=== PATIENT | male | born 1980 | race Caucasian/White ===

== ENCOUNTER 2016-04-25 20:44 | Emergency (ER) | payer BC ==
[~2016-04-25] VITALS: Ht 180.3 cm; Wt 83.9 kg
[~2016-04-25 20:44] MED LIST: [UNRECOGNIZED DRUG - OTHER] PO
[2016-04-25 21:04] VITALS: BP 160/86; PULSE 68; RESP 14; TEMP 98.9; O2SAT 98
--- NOTE | 2016-04-25 21:10 | NUR ---
Patient to ER bed 5 to gown for evaluation. Side rails up. Report given to GABRIEL LITTLEJOHN.
--- NOTE | 2016-04-25 21:11 | NUR ---
at bedside examining pt
[2016-04-25] MEDS ORDERED: KETOROLAC TROMETHAMINE 60 MG/2 ML VIAL IM ONE (21:15)
--- NOTE | 2016-04-25 21:15 | NUR ---
Pt presents to ED with c/o R side of neck soreness , 10/22, started after he woke up today, with occational spasm at R torso. A&Ox4, denies SOB or chestpain, denies N/V/D, pt denies any injury. Will continue to monitor
[2016-04-25 22:27] VITALS: BP 160/86; PULSE 68; RESP 14; TEMP 98.9; O2SAT 98
--- NOTE | 2016-04-25 22:27 | NUR ---
Patient given written and verbal discharge instructions and verbalizes understanding. ER MD Dr. Brian discussed with patient the results and treatment provided. Patient in stable condition. ID arm band removed. Rx of [place] 5 and Motrin 800 given. Patient educated on pain management and to follow up with PMD. Pain Scale 3/10. Opportunity for questions provided and answered.
== END 2016-04-25 22:27 | disposition home or self-care (01) ==
LOC: SED 20:44
DX: S13.4XXA Sprain of ligaments of cervical spine, initial encounter (principal); F17.200 Nicotine dependence, unspecified, uncomplicated; X58.XXXA Exposure to other specified factors, initial encounter; Y93.89 Activity, other specified; Y92.89 Other specified places as the place of occurrence of the external cause; Y99.8 Other external cause status
CPT/HCPCS: 96372; 99283; J1885

== ENCOUNTER 2016-08-09 16:50 | Emergency (ER) | payer SELFPAY ==
[~2016-08-09] VITALS: Ht 180.3 cm; Wt 81.6 kg
[2016-08-09 16:56] VITALS: BP 156/87; PULSE 79; RESP 20; TEMP 97.9; O2SAT 99
--- NOTE | 2016-08-09 17:01 | NUR ---
Pt placed to ER waiting room in stable condition. ANNIE Wheatley notified.
--- NOTE | 2016-08-09 17:10 | NUR ---
Pt brought by self, A&Ox4, pt c/o swelling to base of throat with right ear irritation, denies pain at this time, pt able to swallow, skin pink and warm, cap refill <3, respirations even and unlabored.
--- NOTE | 2016-08-09 17:15 | NUR ---
Corry Cruz FILER FINISH at bedside examining patient
[2016-08-09] MEDS ORDERED: KETOROLAC TROMETHAMINE 60 MG/2 ML VIAL IM ONE (18:45)
[2016-08-09] MEDS ORDERED: IBUPROFEN 800 MG TABLET PO ONE (19:00)
[2016-08-09 20:47] LABS: BASOPHILS % (AUTO) 0.3 % (0.0-2.0); EOSINOPHILS # (AUTO) 0.1 K/uL (0.0-0.4); EOSINOPHILS % (AUTO) 0.8 % (0.0-4.0); HEMATOCRIT 47.7 % (36-54); LYMPHOCYTES # (AUTO) 1.4 K/uL (1.0-5.5); LYMPHOCYTES % (AUTO) 11.5 % (20.5-51.5); MEAN CORPUSCULAR HEMOGLOBIN 30 pg (27-31); MEAN CORPUSCULAR HGB CONC 33 % (32-36); MEAN CORPUSCULAR VOLUME 88 fL (79.0-98.0); MONOCYTES # (AUTO) 1.1 K/uL (0.0-1.0); NEUTROPHILS # (AUTO) 9.4 K/uL (1.8-7.7); NEUTROPHILS % (AUTO) 78.4 % (40.0-70.0); PLATELET COUNT (AUTO) 258 K/uL (130-430); RED BLOOD CELL COUNT(AUTO) 5.41 MIL/uL (4.2-6.2); RED CELL DISTRIBUTION WIDTH 12.1 % (9.0-15.0); WHITE BLOOD COUNT (AUTO) 11.9 K/uL (4.8-10.8)
[2016-08-09 20:58] LABS: CALCIUM 9.2 mg/dL (8.4-11.0); CREATININE 0.96 mg/dL (0.55-1.30)
[2016-08-09 21:13] LABS: ALBUMIN 4.1 g/dL (3.4-4.8); THYROID STIMULATING HORMONE 0.61 uIu/mL (0.34-4.82); TOTAL BILIRUBIN 0.8 mg/dL (0.0-1.0); TOTAL PROTEIN, SERUM 8.2 g/dL (6.4-8.3)
[2016-08-09 21:30] VITALS: BP 156/87; PULSE 79; RESP 20; TEMP 97.9; O2SAT 99
--- NOTE | 2016-08-09 21:30 | NUR ---
Patient given written and verbal discharge instructions and verbalizes understanding. ER MD discussed with patient the results and treatment provided. Patient in stable condition. ID arm band removed. Patient educated on pain management and to follow up with PMD. Pain Scale 0/10. Opportunity for questions provided and answered.
== END 2016-08-09 21:30 | disposition home or self-care (01) ==
LOC: SED 16:50
DX: R22.1 Localized swelling, mass and lump, neck (principal); D72.829 Elevated white blood cell count, unspecified; E07.9 Disorder of thyroid, unspecified; K21.9 Gastro-esophageal reflux disease without esophagitis; F15.10 Other stimulant abuse, uncomplicated; F14.10 Cocaine abuse, uncomplicated
CPT/HCPCS: 36415; 76536-TC; 80053; 84443-TC; 85025; 99285

== ENCOUNTER 2020-04-07 03:46 | Emergency (ER) | payer SELFPAY ==
[~2020-04-07] VITALS: Ht 180.3 cm; Wt 81.6 kg
[2020-04-07 03:57] VITALS: BP_SYST 145
[2020-04-07] MEDS ORDERED: MECLIZINE HCL 25 MG TABLET (ANITVERT) PO ONE (04:30)
[2020-04-07] MEDS ORDERED: MECLIZINE HCL 25 MG TABLET (ANITVERT) ONE (05:01)
[2020-04-07 05:14] LABS: BASOPHILS # (AUTO) 0.1 K/uL (0.0-0.2); EOSINOPHILS # (AUTO) 0.1 K/uL (0.0-0.4); EOSINOPHILS % (AUTO) 1.2 % (0.0-4.0); HEMATOCRIT 48.2 % (36-54); HEMOGLOBIN 16.8 g/dL (14.0-18.0); LYMPHOCYTES % (AUTO) 20.3 % (20.5-51.5); MEAN CORPUSCULAR HEMOGLOBIN 30 pg (27-31); MEAN CORPUSCULAR HGB CONC 35 % (32-36); MEAN CORPUSCULAR VOLUME 87 fL (79.0-98.0); MONOCYTES # (AUTO) 0.8 K/uL (0.0-1.0); MONOCYTES % (AUTO) 8.4 % (1.7-9.3); NEUTROPHILS # (AUTO) 6.9 K/uL (1.8-7.7); NEUTROPHILS % (AUTO) 69.1 % (40.0-70.0); PLATELET COUNT (AUTO) 281 K/uL (130-430); RED BLOOD CELL COUNT(AUTO) 5.56 MIL/uL (4.2-6.2); RED CELL DISTRIBUTION WIDTH 12.8 % (9.0-15.0); WHITE BLOOD COUNT (AUTO) 9.9 K/uL (4.8-10.8)
[2020-04-07 05:27] LABS: ANION GAP 9 (5-15); CALCIUM 9.2 mg/dL (8.4-11.0); CHLORIDE 100 mmol/L (98-107); CREATININE 1.04 mg/dL (0.55-1.30); GLUCOSE 108 mg/dL (70-99); POTASSIUM 3.6 mmol/L (3.5-5.1); SODIUM SERUM 138 mmol/L (136-145); UREA NITROGEN, BLOOD 14 mg/dL (8-21)
[2020-04-07 05:27] LABS: BILIRUBIN,URINE NEGATIVE (NEGATIVE); BLOOD, URINE NEGATIVE (NEGATIVE); CLARITY/URINE CLEAR (CLEAR); COLOR,URINE YELLOW (YELLOW); GLUCOSE,URINE NEGATIVE (NEGATIVE); KETONES,URINE NEGATIVE (NEGATIVE); LEUKOCYTE ESTERASE ,URINE NEGATIVE (NEGATIVE); NITRITE, URINE NEGATIVE (NEGATIVE); PROTEIN URINE NEGATIVE (NEGATIVE); UROBILINOGEN,URINE 0.2 (0.2-1.0)
[2020-04-07 05:33] LABS: GFR AFRICAN AMERICAN 103 mL/min (>90)
[2020-04-07 05:35] LABS: INR 0.9 (0.80-1.20); PROTHROMBIN TIME 9.7 SECS (9.5-12.5)
[2020-04-07 05:42] LABS: ALANINE AMINOTRANSFERASE 46 U/L (12-78); ALBUMIN 4.2 g/dL (3.4-4.8); ASPARTATE AMINOTRANSFERASE 25 U/L (10-37); FREE T4 (FREE THYROXINE) 1.3 ng/dl (0.8-1.5); THYROID STIMULATING HORMONE 2.37 uIu/mL (0.36-3.74); TOTAL BILIRUBIN 0.3 mg/dL (0.0-1.0)
[2020-04-07 05:45] LABS: ALCOHOL, BLOOD < 3 mg/dL (<10)
[2020-04-07 06:06] VITALS: BP_SYST 127
== END 2020-04-07 06:06 | disposition home or self-care (01) ==
LOC: SED 03:46
DX: R42 Dizziness and giddiness (principal); K21.9 Gastro-esophageal reflux disease without esophagitis; Z20.822 Contact with and (suspected) exposure to COVID-19
CPT/HCPCS: 36415; 70450; 71045; 76376; 80053; 81003; 82550; 83880; 84439; 84443; 84484; 85025; 85610; 85730; 87426; 93005; 99285; G0482; J8597

== ENCOUNTER 2022-09-09 14:17 | Emergency (ER) | payer SELFPAY ==
[~2022-09-09] VITALS: Ht 180.3 cm; Wt 83.9 kg
[2022-09-09 14:35] VITALS: BP_SYST 147
[2022-09-09 16:13] LABS: BASOPHILS % (AUTO) 0.3 % (0.0-2.0); EOSINOPHILS % (AUTO) 0.3 % (0.0-4.0); HEMATOCRIT 48.2 % (36-54); HEMOGLOBIN 16.5 g/dL (14.0-18.0); LYMPHOCYTES # (AUTO) 1.4 K/uL (1.0-5.5); LYMPHOCYTES % (AUTO) 11.4 % (20.5-51.5); MEAN CORPUSCULAR HEMOGLOBIN 30 pg (27-31); MEAN CORPUSCULAR HGB CONC 34 % (32-36); MEAN CORPUSCULAR VOLUME 88 fL (79.0-98.0); MONOCYTES # (AUTO) 0.7 K/uL (0.0-1.0); MONOCYTES % (AUTO) 5.4 % (1.7-9.3); NEUTROPHILS % (AUTO) 82.6 % (40.0-70.0); PLATELET COUNT (AUTO) 290 K/uL (130-430); RED BLOOD CELL COUNT(AUTO) 5.52 MIL/uL (4.2-6.2); RED CELL DISTRIBUTION WIDTH 13.5 % (9.0-15.0); WHITE BLOOD COUNT (AUTO) 12.1 K/uL (4.8-10.8)
[2022-09-09 16:55] LABS: ANION GAP 8 (5-15); CALCIUM 9.4 mg/dL (8.4-11.0); CHLORIDE 101 mmol/L (98-107); CREATININE 1.05 mg/dL (0.55-1.30); GFR AFRICAN AMERICAN 100 mL/min (>90); GLUCOSE 108 mg/dL (74-106); UREA NITROGEN, BLOOD 14 mg/dL (8-21)
[2022-09-09 17:02] LABS: ALANINE AMINOTRANSFERASE 31 U/L (12-78); ALBUMIN 4.2 g/dL (3.4-4.8); ASPARTATE AMINOTRANSFERASE 18 U/L (10-37); TOTAL BILIRUBIN 0.6 mg/dL (0.0-1.0)
[2022-09-09 17:21] LABS: ACETONE, SERUM NEGATIVE (NEGATIVE)
[2022-09-09] MEDS ORDERED: ALPR0.5T PO (17:38)
[2022-09-09 18:53] VITALS: BP_SYST 123
== END 2022-09-09 18:53 | disposition home or self-care (01) ==
LOC: SED 14:17
DX: R55 Syncope and collapse (principal); F41.9 Anxiety disorder, unspecified; R42 Dizziness and giddiness; G47.00 Insomnia, unspecified; K21.9 Gastro-esophageal reflux disease without esophagitis; Z79.899 Other long term (current) drug therapy
CPT/HCPCS: 36415; 70450-TC; 71045; 76376; 80053; 82009; 82550; 83605; 84484; 85025; 93005; 99285

== ENCOUNTER 2023-09-16 13:47 | Emergency (ER) | payer MEDICAID ==
[~2023-09-16] VITALS: Ht 160 cm; Wt 54.4 kg
[~2023-09-16 13:47] MED LIST changes: +ALPR0.5T PO
[2023-09-16 13:53] VITALS: BP_SYST 123; PULSE 85; RESP 18; TEMP 98.3; O2SAT 98
[2023-09-16] MEDS: KETOROLAC TROMETHAMINE 30 MG VIAL IM ONE (14:30)
[2023-09-16 15:11] LABS: BASOPHILS % (AUTO) 0.6 % (0.0-2.0); EOSINOPHILS # (AUTO) 0.1 K/uL (0.0-0.4); EOSINOPHILS % (AUTO) 1.2 % (0.0-4.0); HEMATOCRIT 46.1 % (36-54); HEMOGLOBIN 16.1 g/dL (14.0-18.0); LYMPHOCYTES # (AUTO) 1.4 K/uL (1.0-5.5); LYMPHOCYTES % (AUTO) 22.2 % (20.5-51.5); MEAN CORPUSCULAR HEMOGLOBIN 30 pg (27-31); MEAN CORPUSCULAR HGB CONC 35 % (32-36); MEAN CORPUSCULAR VOLUME 86 fL (79.0-98.0); MONOCYTES # (AUTO) 0.5 K/uL (0.0-1.0); MONOCYTES % (AUTO) 8.8 % (1.7-9.3); NEUTROPHILS # (AUTO) 4.1 K/uL (1.8-7.7); NEUTROPHILS % (AUTO) 67.2 % (40.0-70.0); PLATELET COUNT (AUTO) 286 K/uL (130-430); RED BLOOD CELL COUNT(AUTO) 5.38 MIL/uL (4.2-6.2); RED CELL DISTRIBUTION WIDTH 13.9 % (9.0-15.0); WHITE BLOOD COUNT (AUTO) 6.1 K/uL (4.8-10.8)
[2023-09-16 15:24] LABS: ANION GAP 11 (5-15); CALCIUM 9.3 mg/dL (8.4-11.0); CARBON DIOXIDE 24 mmol/L (23-29); CHLORIDE 104 mmol/L (98-107); CREATININE 1.03 mg/dL (0.55-1.30); GFR AFRICAN AMERICAN 102 mL/min (>90); GLUCOSE 111 mg/dL (74-106); POTASSIUM 4.1 mmol/L (3.5-5.1); SODIUM SERUM 139 mmol/L (136-145); UREA NITROGEN, BLOOD 16 mg/dL (8-21)
[2023-09-16 15:27] LABS: GFR NON AFRICAN-AMERICAN 84 mL/min (>90)
[2023-09-16] MEDS ORDERED: IBUP-1969 PO (17:22)
[2023-09-16] MEDS ORDERED: LORA-259 PO (17:34)
[2023-09-16 17:36] VITALS: BP_SYST 140; PULSE 63; RESP 18; TEMP 98.6; O2SAT 97
== END 2023-09-16 17:35 | disposition home or self-care (01) ==
LOC: SED 13:47
DX: R07.89 Other chest pain (principal); M94.0 Chondrocostal junction syndrome [Tietze]; K21.9 Gastro-esophageal reflux disease without esophagitis; Z79.899 Other long term (current) drug therapy
CPT/HCPCS: 99285; 71045; 80048; 83880; 85025; 84484; 36415; 93005; 96372; J1885